=== PATIENT | male | born 2000 | race Two or more races ===

== ENCOUNTER 2025-01-23 12:25 | Emergency (ER) | payer OTHER ==
[~2025-01-23] VITALS: Ht 182.9 cm; Wt 91.3 kg
--- NOTE | 2025-01-23 13:00 | ED.PDOC ---
HPI Comments This is a 24 year old male presenting to the ED with chief complaint of laceration. Patient reports that while at work today at 12pm, he accidentally smashed his right thumb against a forklift blade, causing a laceration to his right thumb. Patient relays that he has 7/10 at this time. Patient states he is unsure when his last Tetanus vaccine was received. Patient notes he is right handed. Patient denies any N/V, numbness, weakness, or tingling. Chief Complaint: Laceration Time Seen by MD: 12:57 Reviewed Notes: Nurses Notes, Medications, Allergies Information Source: Patient Mode of Arrival: Ambulatory Severity: Moderate Severity of Laceration: Controlled Bleeding Complexity: Intermediate Timing: Hours Prehospital treatment: None Laceration Location: Digit #5 Mechanism: Work Related Last Tetanus: Unknown Laceration Length (cm): 4 Skin Type: Irregular Depth of Injury: SQ Tender: Moderate Discharge: Bloody Erythema: Localized to Wound Edges Past Medical History PAST MEDICAL HISTORY: Denies Surgical History: Denies all surgeries Family History Family History: Reviewed,noncontributory to illness Social History Smoker: Non-Smoker Alcohol: Denies ETOH Use Drugs: Denies Drug Use Lives In: Home Constitutional: denies: chills, diaphoresis, fatigue, fever, malaise, sweats, weakness, others EENTM: denies: blurred vision, double vision, ear bleeding, ear discharge, ear drainage, ear pain, ear ringing, eye pain, eye redness, hearing loss, mouth pain, mouth swelling, nasal discharge, nose bleeding, nose congestion, nose pain, photophobia, tearing, throat pain, throat swelling, voice changes, others Respiratory: denies: cough, hemoptysis, orthopnea, SOB at rest, shortness of breath, SOB with excertion, stridor, wheezing, others Cardiovascular: denies: chest pain, dizzy spells, diaphoresis, Dyspnea on exertion, edema, irregular heart beat, left arm pain, lightheadedness, palpitations, PND, syncope, others Gastrointestinal: denies: abdomen distended, abdominal pain, blood streaked bowels, constipated, diarrhea, dysphagia, difficulty swallowing, hematemesis, melena, nausea, poor appetite, poor fluid intake, rectal bleeding, rectal pain, vomiting, others Genitourinary: denies: burning, dysuria, flank pain, frequency, hematuria, incontinence, penile discharge, penile sore, pain, testicle pain, testicle swelling, urgency, others Neurological: denies: dizziness, fainting, headache, left sided numbness, left sided weakness, numbness, paresthesia, pre-existing deficit, right sided numbness, right sided weakness, seizure, speech problems, tingling, tremors, weakness, others Musculoskeletal: denies: back pain, gout, joint pain, joint swelling, muscle pain, muscle stiffness, neck pain, others Integumetry: reports: laceration (Rt thumb laceration); denies: bruises, change in color, change in hair/nails, dryness, lesions, lumps, rash, wounds, others Allergic/Immunocompromised: denies: Difficulty Healing, Frequent Infections, Hives, Itching, others Hematologic/Lymphatic: denies: anemia, blood clots, easy bleeding, easy bruising, swollen glands, others Endocrine: denies: excessive hunger, excessive sweating, excessive thirst, excessive urination, flushing, intolerance to cold, intolerance to heat, unexplained weight gain, unexplained weight loss, others Psychiatric: denies: anxiety, bipolar disorder, depression, hopeless, panic disorder, schizophrenia, sleepless, suicidal, others All Other Systems: Reviewed and Negative Physical Exam General Appearance: Severe Distress HEENT: Normal ENT Inspection, Pharynx Normal, TMs Normal Neck: Full Range of Motion, Non-Tender, Normal, Normal Inspection Respiratory: Chest Non-Tender, Lungs Clear, No Accessory Muscle Use, No Respiratory Distress, Normal Breath Sounds Cardiovascular: No Edema, No JVD, No Murmur, No Gallop, Normal Peripheral Pulses, Regular Rate/Rhythm Breast Exam: Deferred Gastrointestinal: No Organomegaly, Non Tender, No Pulsatile Mass, Normal Bowel Sounds, Soft Genitalia: Deferred Pelvic: Deferred Rectal: Deferred Extremities: No calf tenderness, Normal capillary refill, Normal inspection, Normal range of motion, Non-tender, No pedal edema Musculoskeletal : Location: Right Extremity Location: Thumb (Open fracture with some deformity. The patient has extension and flexion with abduction of the thumb intact. The patient has suffered some sensory loss) Apperance: Normal Neurologic: Alert, still operator batch or continuous II-XII nml as Tested, No Motor Deficits, Normal Affect, Normal Mood, No Sensory Deficits Cerebellar Function: Normal Reflexes: Normal Skin: Dry, Normal Color, Warm Lymphatic: No Adenopathy Was a procedure done? Was a procedure done?: No Differential diagnosis Generic Laceration: Laceration X-Ray, Labs, Meds, VS Vital Signs Date Time Temp Pulse Resp B/P (MAP) Pulse Ox O2 Delivery O2 Flow Rate FiO2 01/23/25 14:02 84 19 125/76 01/23/25 12:28 97.5 69 18 139/86 98 97.5 Current Medications Medications (Trade) Dose Ordered Sig/Jacqui Route Start Time Stop Time Status Last Admin Diphtheria/ Tetanus/Acell Pertussis (Boostrix T-Dap) 0.5 ml ONCE ONCE IM 01/23/25 13:00 01/23/25 13:01 DC 01/23/25 13:53 Cefazolin Sodium/ Dextrose 50 ml @ 50 mls/hr ONCE ONCE IV 01/23/25 13:00 01/23/25 13:59 DC 01/23/25 13:54 Morphine Sulfate 2 mg ONCE ONCE IV 01/23/25 13:00 01/23/25 13:01 DC 01/23/25 14:02 Ondansetron HCl (Zofran) 4 mg ONCE ONCE IV 01/23/25 13:00 01/23/25 13:01 DC 01/23/25 13:54 Rt Hand XR indicates: Comminuted fracture of the right 1st distal and proximal phalanx with intra-articular extension to the distal interphalangeal joint. IV Hep-Lock was established. The patient was given morphine 2 mg IV push for the pain The patient was given Zofran 4 mg IV push for the nausea The patient was given a tetanus shot here in the emergency department's. The patient was also given Ancef 2 g IV piggyback We did contact the physician at [facility] and they have agreed to accept the patient for transfer. We are transferring the patient because we do not have a hand surgeon available The patient's fracture is open and he has suffered comminuted fractures to the distal as well as proximal and into the intra-articular interphalangeal joint The patient at this time was informed about the transfer. He understands and agrees with the management. Images Reviewed?: Images reviewed and evaluated by me Time of 1ST Reevaluation: 14:34 Reevaluation 1ST: Improved Patient Education/Counseling: Diagnosis, Treatment, Prognosis Family Education/Counseling: No Family Present Departure 1 Departure Time of Disposition: 14:33 Impression: Primary Impression: Fracture of thumb, right open Qualified Codes: S62.511B - Displaced fracture of proximal phalanx of right thumb, initial encounter for open fracture Disposition: 51 HOSPICE/MEDICAL FACILITY Condition: Fair Critical Care Note Critical Care Time?: No Stability Stability form required: Yes Stable for transfer: Intended for transfer (Health plan request transfer), To designated facility Heart Score Heart Score: Heart Score Response (Comments) Value History N/A 0 EKG N/A 0 Age N/A 0 Risk Factors N/A 0 Troponin N/A 0 Total 0 I personally scribed for GRADY BOWDEN MD ([email or web address]) on 01/23/25 at 13:00. Electronically submitted by Tin Fang ([email or web address]). I personally scribed for GRADY BOWDEN MD ([email or web address]) on 01/23/25 at 13:54. Electronically submitted by Tin Fang ([email or web address]). GRADY BOWDEN MD Jan 23, 2025 13:00
--- NOTE | 2025-01-23 13:51 | DVH ---
CLINICAL INDICATION: trauma TECHNIQUE: 3 radiographic views of the right hand were obtained. Comparison: None FINDINGS/IMPRESSION: Comminuted fracture of the right 1st distal and proximal phalanx with intra-articular extension to th e distal interphalangeal joint.
[2025-01-23] MEDS: TETANUS-DIPTH-ACEL PERTUSSIS 0.5ML SYR Tdap IM ONE (13:53)
[2025-01-23] MEDS: ceFAZolin 2 GM/D5W50ml 50 ML IV ONE (13:54)
[2025-01-23] MEDS: ONDANSETRON HCL 4 MG/2 ML VIAL IV ONE ×2 (13:54→15:51)
[2025-01-23] MEDS: MORPHINE SULFATE INJ 2 MG/ml SYRG IV ONE (14:02)
[2025-01-23 14:20] VITALS: PULSE 58; RESP 13; O2SAT 97
[2025-01-23 15:32] VITALS: TEMP 97.9; O2SAT 97
[2025-01-23 15:51] VITALS: BP 132/87; PULSE 55; RESP 11
[2025-01-23] MEDS: MORPHINE SULFATE 4 MG/ML SYR/VIAL IV ONE (15:51)
== END 2025-01-23 16:38 | disposition short-term general hospital (02) ==
LOC: ER 12:25
DX: S62.501B Fracture of unspecified phalanx of right thumb, initial encounter for open fracture (principal); S62.521B Displaced fracture of distal phalanx of right thumb, initial encounter for open fracture; S62.511B Displaced fracture of proximal phalanx of right thumb, initial encounter for open fracture; W23.0XXA Caught, crushed, jammed, or pinched between moving objects, initial encounter
CPT/HCPCS: 73130; 90471; 90715; 96365; 96366; 96375; 96376; 99285; J0690; J2270; J2405